=== PATIENT | male | born 1960 | race African-American/Black ===

== ENCOUNTER 2017-06-18 21:26 | Emergency (ER) | payer MEDICAID ==
[~2017-06-18 21:26] MED LIST: QUET50TA PO
== END 2017-06-18 22:35 | disposition left against medical advice (07) ==
LOC: ER 21:26
DX: R21 Rash and other nonspecific skin eruption (principal); Z53.21 Procedure and treatment not carried out due to patient leaving prior to being seen by health care provider

== ENCOUNTER 2017-12-06 03:54 | Emergency (ER) | payer MEDICAID, OTHER ==
[~2017-12-06] VITALS: Ht 177.8 cm; Wt 77.3 kg
[2017-12-06 05:06] VITALS: BP 109/74
[2017-12-06 05:34] LABS: BASOPHILS % 1.4 % (0.0-2.0); EOSINOPHILS % 2.2 % (0.0-5.0); HEMATOCRIT. 39.9 % (42.0-52.0); HEMOGLOBIN. 14.2 g/dL (14.0-18.0); LYMPHOCYTES % 33.5 % (20.0-50.0); MEAN CORPUSCULAR HEMOGLOBIN 29.7 pg (28.0-32.0); MEAN CORPUSCULAR VOLUME 83.5 fL (80.0-94.0); MEAN PLATELET VOLUME 8.5 fl (7.4-10.4); MONOCYTES % 5.4 % (2.0-8.0); NEUTROPHILS % 57.5 % (40.0-76.0); PLATELET 287 x1000/uL (130-400); RED BLOOD CELL COUNT 4.78 mill/uL (4.7-6.1); RED CELL DISTRIBUTION WIDTH 12.9 % (11.6-14.6)
[2017-12-06 05:39] LABS: CHLORIDE 107 mEq/L (98-107)
== END 2017-12-06 06:34 | disposition home or self-care (01) ==
LOC: ER 04:09
DX: R73.9 Hyperglycemia, unspecified (principal); R20.0 Anesthesia of skin; R20.2 Paresthesia of skin; F17.200 Nicotine dependence, unspecified, uncomplicated; F14.10 Cocaine abuse, uncomplicated; F12.10 Cannabis abuse, uncomplicated; H40.9 Unspecified glaucoma; F20.0 Paranoid schizophrenia
CPT/HCPCS: 36415; 80048; 82962; 85025; 99284

== ENCOUNTER 2022-06-07 19:18 | Emergency (ER) | payer OTHER | END 2022-06-07 20:53 | disposition left against medical advice (07) | LOC: ER 19:18 | DX: Z53.21 Procedure and treatment not carried out due to patient leaving prior to being seen by health care provider (principal) ==